=== PATIENT | female | born 1965 | race Caucasian/White ===

== ENCOUNTER → 2019-03-19 | Outpatient (CLI) | payer BC ==
--- NOTE | 2019-03-19 09:11 | CT ---
EXAMINATION TYPE: CT sinus wo con DATE OF EXAM: 03/19/2019 COMPARISON: NONE HISTORY: chronic drainage cough CT DLP: 597 mGycm. Automated Exposure Control for Dose Reduction was Utilized. TECHNIQUE: CT scan of the sinuses is performed without contrast, axial images are obtained, coronal r eformatted images are also reviewed. FINDINGS: The paranasal sinuses and mastoid air cells are well aerated. Scant mucosal thickening is seen within the left ostiomeatal plaque although the ostia medial complexes appear patent. There is mild leftwar d nasal septal deviation. There is a 3 mm nasal septal spur. No Alonso cells or liliam bullosa are ap preciated. The globes are symmetric and unremarkable. Extraocular muscles are also unremarkable. Temporal mandib ular joints are symmetric. The brain demonstrate no acute abnormality but are suboptimally evaluated given [id number]. IMPRESSION: 1. Paranasal sinuses are currently well aerated. No acute sinusitis at this time. 2. 3 mm leftward nasal septal spur and mild leftward nasal septal deviation. 3. Scant mucosal thickening within the left ostiomeatal complex. Bilateral ostiomeatal complexes are patent however.
[2019-03-19 09:23] LABS: T4, Free (Free Thyroxine) 0.93 ng/dL (0.78-2.19)
--- NOTE | 2019-03-19 09:45 | US ---
EXAMINATION TYPE: US thyroid st tissue head/neck DATE OF EXAM: 03/19/2019 COMPARISON: Thyroid ultrasound March 13, 2009 CLINICAL HISTORY: J32.9 Chronic sinusitis E04.1 Thyroid nodule. GLAND SIZE: Right Lobe: 4.4 X 1.5 X 0.9 cm Overall Parenchyma: homogenous Left Lobe: 4.5 X 1.6 X 0.9 cm Overall Parenchyma: homogeneous Isthmus Thickness: 0.3 cm NODULES RIGHT: # of nodules measured on right: 0 LEFT: # of nodules measured on left: 1 1. 0.8 X 0.8cm calcified nodule at the lower pole with well-defined margins. This nodule is wider t wayne tall and shows no intranodular vascularity. Prior size: AIRFREIGHT OPERATIONS AGENT ISTHMUS: # of nodules measured in the isthmus: 0 Bilateral neck scanned, no evidence of lymphadenopathy. Previously visualized large solid cystic left thyroid nodule not clearly seen on today's study. Suspe ct product of interval aspiration. IMPRESSION: Normal-sized thyroid without suspicious greater than 1 cm nodule on current study.
--- NOTE | 2019-03-19 09:52 | XR ---
EXAMINATION TYPE: XR chest 2V DATE OF EXAM: 03/19/2019 COMPARISON: NONE HISTORY: Chronic sinusitis and cough TECHNIQUE: Frontal and lateral views of the chest are obtained. FINDINGS: There is no focal air space opacity, pleural effusion, or pneumothorax seen. The cardiac silhouette size is within normal limits. The osseous structures are intact. Mild multilevel degener ative changes of the spine. IMPRESSION: No acute cardiopulmonary process.
== END | disposition home or self-care (01) ==
LOC: RADCTMAIN 08:07
PROVIDERS: ATTEND Otolaryngology
DX: J34.2 Deviated nasal septum (principal); E04.1 Nontoxic single thyroid nodule; R05 Cough
CPT/HCPCS: 70486; 71046; 76536; 84439; 84443

== ENCOUNTER → 2019-04-26 | Outpatient (CLI) | payer BC ==
--- NOTE | 2019-04-26 16:19 | CT ---
EXAMINATION TYPE: CT abdomen pelvis w con DATE OF EXAM: 04/26/2019 COMPARISON: None INDICATION: Lower abdominal and bladder pain. DLP: 1676.6 mGycm, Automated exposure control for dose reduction was used. CONTRAST: 100ml mL of Isovue 300. Study performed with Oral Contrast TECHNIQUE: Axial images were obtained from above the diaphragm to the pubic rami in the axial plane a t 5 mm thick sections. Reconstructed images are reviewed on the computer in the coronal plane. FINDINGS: Limited CT sections are obtained the lung bases. The lung bases are clear. CT ABDOMEN: Liver: Normal Spleen: Normal Pancreas: Normal Adrenal glands: The adrenal glands are normal. Gallbladder: Normal Kidneys: No masses are evident. No hydronephrosis is present. No cysts are present. Delayed images were obtained through the kidneys, which remain unremarkable. Aorta: Vascular calcification is within the aorta. Inferior vena cava: Normal. CT PELVIS: Multiple diverticuli are through the sigmoid colon. Adjacent to the mid sigmoid colon ther e are some inflammatory changes near to the uterus and urinary bladder likely related to some acute d iverticulitis. There are loops of bowel which are incompletely distended or lack oral contrast limiting their evalua tion. Appendix: Normal as visualized. Urinary bladder: Normal. Genitourinary structures: Uterus appears normal. Adnexal regions are clear. Osseous structures: No suspicious lytic or sclerotic lesions. Sacroiliac joint degenerative changes a re noted. IMPRESSIONS: 1. Acute diverticulitis adjacent to the mid sigmoid colon
== END | disposition home or self-care (01) ==
LOC: RADCTMAIN 13:43
PROVIDERS: ATTEND Internal Medicine
DX: K57.32 Diverticulitis of large intestine without perforation or abscess without bleeding (principal)
CPT/HCPCS: 74177; Q9967

== ENCOUNTER → 2019-05-14 | Outpatient (CLI) | payer BC ==
--- NOTE | 2019-05-23 10:50 | MM ---
Reason for exam: screening (asymptomatic). Last mammogram was performed 4 years and 8 months ago. History: Patient is postmenopausal and history of other cancer. Physical Findings: A clinical breast exam by your physician is recommended on an annual basis and results should be correlated with mammographic findings. MG 3D Screening Mammo W/Cad Bilateral CC and MLO view(s) were taken. Prior study comparison: September 26, 2014, mammogram, performed at [place]. There are scattered fibroglandular densities. There is chronic nodularity in the left breast. There is no discrete abnormality. ASSESSMENT: Negative, BI-RAD 1 RECOMMENDATION: Routine screening mammogram of both breasts in 1 year.
== END | disposition home or self-care (01) ==
LOC: RADMAMWWP 08:13
PROVIDERS: ATTEND Obstetrics & Gynecology
DX: Z12.31 Encounter for screening mammogram for malignant neoplasm of breast (principal); N95.9 Unspecified menopausal and perimenopausal disorder
CPT/HCPCS: 77063; 77067; 83001

== ENCOUNTER → 2020-04-01 | Outpatient (CLI) | payer BC ==
--- NOTE | 2020-04-01 18:41 | US ---
EXAMINATION TYPE: US thyroid st tissue head/neck DATE OF EXAM: 04/01/2020 COMPARISON: NONE CLINICAL HISTORY: E04.1 Thyroid nodule. Thyroid nodule, history of thyroid FNA GLAND SIZE: Right Lobe: 4.7 x 1.4 x 1.9 cm Overall Parenchyma: heterogenous Left Lobe: 4.0 x 1.3 x 1.1 cm Overall Parenchyma: heterogeneous Isthmus Thickness: 0.3 cm NODULES RIGHT: # of nodules measured on right: 0 LEFT: # of nodules measured on left: 1 1. 0.7 X 0.3 x 0.7 cm echogenic calcified nodule at the lower pole with poorly defined margins. Thi s nodule is wider than tall and shows no intranodular vascularity. Prior size: 0.8 x 0.8 cm ISTHMUS: # of nodules measured in the isthmus: 0 Bilateral neck scanned, no evidence of lymphadenopathy. IMPRESSION: Essentially stable calcified focus within the left lobe of the thyroid and subcentimeter in size
== END | disposition home or self-care (01) ==
LOC: RADUSWWP 16:33
PROVIDERS: ATTEND Otolaryngology
DX: E04.1 Nontoxic single thyroid nodule (principal)
CPT/HCPCS: 76536

== ENCOUNTER 2023-04-27 11:37 | Emergency (ER) | payer BC, OTHER ==
--- NOTE | 2023-04-27 11:55 | ED ---
General Adult HPI <Katina Leon - Last Filed: 04/27/23 11:54> - General Source: patient, RN notes reviewed, old records reviewed <Fausto Herrera - Last Filed: 04/27/23 15:00> - General Stated complaint: high bp Time Seen by Provider: 04/27/23 11:55 - History of Present Illness Initial comments: Patient is a 58-year-old female is otherwise healthy presents emergency room with complaints of elevated blood pressure and just not feeling quite like herself. She states that over the last couple weeks she has not felt like herself and has been monitoring her blood pressure. She states that it has been more elevated over the last 2 days and when she took her blood pressure at the pharmacy today it was 180/108. Patient states that she gets palpitations when she lays down at night. (Katina Leon) This is a 58-year-old female presents emergency Department because her blood pressure has been elevated. Patient states she went to urgent care and it was normal but they gave her a prescription for her blood pressure and she went to get it filled and at the pharmacy and was again elevated. Patient denies headache patient denies any numbness weakness. Patient denies any chest pain difficulty breathing or shortness of breath. Patient states she's been having elevated blood pressures at home when she's been taking it lately but she has never been treated for high blood pressure. Patient denies any fever chills or cough per patient denies any symptoms except for the fact her blood pressures. (Fausto Herrera) - Related Data Home Medications Medication Instructions Recorded Confirmed No Known Home Medications 04/27/23 04/27/23 Allergies Allergy/AdvReac Type Severity Reaction Status Date / Time bee venom protein (honey bee) Allergy Anaphylaxis Verified 04/27/23 13:26 Review of Systems ROS Other: All systems not noted in ROS Statement are negative. <Katina Leon - Last Filed: 04/27/23 11:54> ROS Other: All systems not noted in ROS Statement are negative. <Fausto Herrera - Last Filed: 04/27/23 15:00> ROS Statement: Those systems with pertinent positive or pertinent negative responses have been documented in the HPI. General Exam <Katina Leon - Last Filed: 04/27/23 11:54> <Fausto Herrera - Last Filed: 04/27/23 15:00> - General Exam Comments Initial Comments: Visual Physical Exam Vital signs reviewed General: Well-appearing, nontoxic, no acute distress. Head: Normocephalic, atraumatic Eyes: PERRLA, EOMI ENT: Airway patent Chest: Nonlabored breathing Skin: No visual rash, normal skin tone Neuro: Alert and oriented 3 Musculoskeletal: No gross abnormalities (Katina Leon) GENERAL: Patient is well-developed and well-nourished. Patient is nontoxic and well-hydr ated and is in no acute distress. ENT: Neck is soft and supple. No significant lymphadenopathy is noted. Oropharynx is clear. Moist mucous membranes. Neck has full range of motion without eliciting any pain. EYES: The sclera were anicteric and conjunctiva were pink and moist. Extraocular mo vements were intact and pupils were equal round and reactive to light. Eyelids were unremarkable. PULMONARY: Unlabored respirations. Good breath sounds bilaterally. No audible rales rhonchi or wheezing was noted. CARDIOVASCULAR: There is a regular rate and rhythm without any murmurs gallops or rubs. ABDOMEN: Soft and nontender with normal bowel sounds. SKIN: Skin is clear with no lesions or rashes and otherwise unremarkable. NEUROLOGIC: Patient is alert and oriented x3. Cranial nerves II through XII are grossly intact. Motor and sensory are also intact. Normal speech, volume and content. Symmetrical smile. MUSCULOSKELETAL: Normal extremities with adequate strength and full range of motion. No lower extremity swelling or edema. No calf tenderness. LYMPHATICS: No significant lymphadenopathy is noted PSYCHIATRIC: Normal psychiatric evaluation. (Fausto Herrera) Course Vital Signs 04/27/23 04/27/23 04/27/23 11:51 13:23 13:51 Temperature 98.0 F Pulse Rate 75 82 Respiratory 18 Rate Blood Pressure 198/112 172/94 172/94 O2 Sat by Pulse 98 Oximetry 04/27/23 04/27/23 04/27/23 13:52 14:07 14:52 Temperature Pulse Rate Respiratory Rate Blood Pressure 135/85 126/80 137/86 O2 Sat by Pulse Oximetry Medical Decision Making <Katina Leon - Last Filed: 04/27/23 11:54> - Lab Data Result diagrams: 04/27/23 12:07 04/27/23 12:07 <Fausto Herrera - Last Filed: 04/27/23 15:00> - Medical Decision Making Quick note portion completed by myself, electronically signed HAM Skaggs. (Katina Leon) EKG is reviewed by myself. EKG shows sinus rhythm at 83 bpm VT interval 252 QRS is 88 QT interval 390 QTC is 420. Patient's EKG shows no ST segment elevation or depression. Was pt. sent in by a medical professional or institution (, [facility], TIER LIFT OPERATOR, urgent care, hospital, or [facility]...) When possible be specific @ -Patient was sent in by the urgent care Did you speak to anyone other than the patient for history (EMS, parent, family, police, friend...)? What history was obtained from this source @ -No Did you review nursing and triage notes (agree or disagree)? Why? @ -I reviewed and agree with nursing and triage notes Were old charts reviewed (outside hosp., previous admission, EMS record, old EKG, old radiological studies, urgent care reports/EKG's, [facility] records)? Report findings @ -I reviewed prior charts and lab work on this patient Differential Diagnosis (chest pain, altered mental status, abdominal pain women, abdominal pain men, vaginal bleeding, weakness, fever, dyspnea, syncope, headache, dizziness, GI bleed, back pain, seizure, CVA, palpatations, mental health, musculoskeletal)? @ -not applicable EKG interpreted by me (3pts min.). @ -As above X-rays interpreted by me (1pt min.). @ -None done CT interpreted by me (1pt min.). @ -None done U/S interpreted by me (1pt. min.). @ -None done What testing was considered but not performed or refused? (CT, X-rays, U/S, labs )? Why? @ -None What meds were considered but not given or refused? Why? @ -None Did you discuss the management of the patient with other professionals (professionals i.e. [facility] Wagner, TIER LIFT OPERATOR, lab, RT, psych nurse, health care social worker, organizational consultant, teacher, chief environmental commitment officer, nurse outreach case manager)? Give summary @ -No Was smoking cessation discussed for >3mins.? @ -No Was critical care preformed (if so, how long)? @ -No Were there social determinants of health that impacted care today? How? (Homelessness, low income, unemployed, alcoholism, drug addiction, transportation, low edu. Level, literacy, decrease access to med. care, [place] [facility], rehab)? @ -No Was there de-escalation of care discussed even if they declined (Discuss DNR or withdrawal of care, Hospice)? DNR status @ -No What co-morbidities impacted this encounter? (DM, HTN, Smoking, COPD, CAD, Cancer, CVA, ARF, Chemo, Hep., AIDS, mental health diagnosis, sleep apnea, morbid obesity)? @ -None Was patient admitted / discharged? Hospital course, mention meds given and route, prescriptions, significant lab abnormalities, going to OR and other pertinent info. @ -Patient was asymptomatic throughout her ED course. Patient's blood pressure after his initial presentation was within normal range and the monitor for over an hour she was asymptomatic and remained in normal range she she will follow-up with her primary medical care doctor. Patient will also filled the prescription at the primary medical care doctor gave her for blood pressure and will document her daily blood pressures 4 times a day the same time every day. Undiagnosed new problem with uncertain prognosis? @ -No Drug Therapy requiring intensive monitoring for toxicity (Heparin, Nitro, Insulin, Cardizem)? @ -No Were any procedures done? @ -No Diagnosis/symptom? @ -Hypertensive urgency Acute, or Chronic, or Acute on Chronic? @ -Acute Uncomplicated (without systemic symptoms) or Complicated (systemic symptoms)? @ -Complicated Side effects of treatment? @ -No Exacerbation, Progression, or Severe Exacerbation? @ -No Poses a threat to life or bodily function? How? (Chest pain, [place], [place], pneumonia, PE, COPD, DKA, ARF, appy, cholecystitis, CVA, Diverticulitis, Homicidal, Suicidal, threat to staff... and all critical care pts) @ -No (Fausto Herrera) - Lab Data Lab Results 04/27/23 04/27/23 04/27/23 Range/Units 12:07 12:07 12:07 WBC 6.8 (3.8-10.6) k/uL RBC 4.73 (3.80-5.40) m/uL Hgb 14.4 (11.4-16.0) gm/dL Hct 43.1 (34.0-46.0) % MCV 91.1 (80.0-100.0) fL MCH 30.3 (25.0-35.0) pg MCHC 33.3 (31.0-37.0) g/dL RDW 13.0 (11.5-15.5) % Plt Count 336 (150-450) k/uL MPV 6.8 Neutrophils % 62 % Lymphocytes % 26 % Monocytes % 6 % Eosinophils % 2 % Basophils % 1 % Neutrophils # 4.2 (1.3-7.7) k/uL Lymphocytes # 1.8 (1.0-4.8) k/uL Monocytes # 0.4 (0-1.0) k/uL Eosinophils # 0.2 (0-0.7) k/uL Basophils # 0.1 (0-0.2) k/uL Sodium 140 (137-145) mmol/L Potassium 4.3 (3.5-5.1) mmol/L Chloride 102 (98-107) mmol/L Carbon Dioxide 27 (22-30) mmol/L Anion Gap 11 mmol/L BUN 15 (7-17) mg/dL Creatinine 0.70 (0.52-1.04) mg/dL Est GFR (CKD-EPI)AfAm >90 (>60 ml/min/1.73 sqM) Est GFR (CKD-EPI)NonAf >90 (>60 ml/min/1.73 sqM) Glucose 103 H (74-99) mg/dL Calcium 9.3 (8.4-10.2) mg/dL Total Bilirubin 0.4 (0.2-1.3) mg/dL AST 26 (14-36) U/L ALT 36 H (4-34) U/L Alkaline Phosphatase 108 (38-126) U/L Troponin I <0.012 (0.000-0.034) ng/mL Total Protein 7.4 (6.3-8.2) g/dL Albumin 4.5 (3.5-5.0) g/dL TSH 1.690 (0.465-4.680) mIU/L Disposition <Katina Leon - Last Filed: 04/27/23 11:54> Is patient prescribed a controlled substance at d/c from ED?: No Time of Disposition: 15:00 <HerreraFausto - Last Filed: 04/27/23 15:00> Clinical Impression: Hypertensive urgency Disposition: HOME SELF-CARE Condition: Good Instructions (If sedation given, give patient instructions): Hypertension (ED) Additional Instructions: Patient should monitor her blood pressure 4 times a day and charted appr opriately in follow-up with her primary medical care doctor. Patient's return to the emergency department if she has any chest pain difficulty breathing or headache. Referrals: Kendell Mercado MD [Primary Care Provider] - 1-2 days
[2023-04-27 12:21] LABS: Basophils # (A) 0.1 k/uL (0-0.2); Basophils % (A) 1 %; Eosinophils # (A) 0.2 k/uL (0-0.7); Eosinophils % (A) 2 %; HCT 43.1 % (34.0-46.0); HGB 14.4 gm/dL (11.4-16.0); Lymphocytes # (A) 1.8 k/uL (1.0-4.8); Lymphocytes % (A) 26 %; MCH 30.3 pg (25.0-35.0); MCHC 33.3 g/dL (31.0-37.0); MCV 91.1 fL (80.0-100.0); Mean Platelet Volume 6.8; Monocytes # (A) 0.4 k/uL (0-1.0); Monocytes % (A) 6 %; Neutrophils # (A) 4.2 k/uL (1.3-7.7); Neutrophils % (A) 62 %; Platelet Count 336 k/uL (150-450); RBC 4.73 m/uL (3.80-5.40); WBC 6.8 k/uL (3.8-10.6)
--- NOTE | 2023-04-27 12:58 | XR ---
EXAMINATION TYPE: XR chest 2V DATE OF EXAM: 04/27/2023 12:55 PM CLINICAL INDICATION:Female, 58 years old with history of elevated blood pressure, palpitations; [facility] COMPARISON: Chest radiographs from 03/19/2019 TECHNIQUE: XR chest 2V Frontal and lateral views of the chest. FINDINGS: Lungs/Pleura: There is no evidence of pleural effusion, focal consolidation, or pneumothorax. Pulmonary vascularity: Unremarkable. Heart/mediastinum: Cardiomediastinal silhouette is unremarkable. Musculoskeletal: No acute osseous pathology. IMPRESSION: No acute cardiopulmonary disease/process.
[2023-04-27 13:05] LABS: ALT 36 U/L (4-34); AST 26 U/L (14-36); African American GFR (CKD) >90 (>60 ml/min/1.73 sqM); Albumin 4.5 g/dL (3.5-5.0); Alkaline Phosphatase 108 U/L (38-126); Anion Gap 11 mmol/L; Blood Urea Nitrogen 15 mg/dL (7-17); Calcium 9.3 mg/dL (8.4-10.2); Carbon Dioxide 27 mmol/L (22-30); Chloride 102 mmol/L (98-107); Glucose 103 mg/dL (74-99); Non-African American GFR(CKD) >90 (>60 ml/min/1.73 sqM); Potassium 4.3 mmol/L (3.5-5.1); Sodium 140 mmol/L (137-145); Total Bilirubin 0.4 mg/dL (0.2-1.3); Total Protein 7.4 g/dL (6.3-8.2)
[2023-04-27] MEDS ORDERED: hydrALAZINE HCL 20 MG/ML 1 ML VIAL IVP STA (13:16)
[2023-04-27 15:36] VITALS: BP 127/83; PULSE 80; RESP 16; TEMP 97.4
== END 2023-04-27 15:20 | disposition home or self-care (01) ==
LOC: EC 11:37
DX: I16.0 Hypertensive urgency (principal); Z91.030 Bee allergy status
CPT/HCPCS: 36415; 71046; 80053; 84443; 84484; 85025; 93005; 99284

== ENCOUNTER → 2023-11-13 | Outpatient (CLI) | payer OTHER ==
[2023-11-13 10:25] LABS: Basophils # (A) 0.05 X 10*3/uL (0.00-0.10); Basophils % (A) 0.8 %; Eosinophils # (A) 0.12 X 10*3/uL (0.04-0.35); Eosinophils % (A) 1.8 %; HCT 42.5 % (37.2-46.3); HGB 13.8 g/dL (12.0-15.0); Lymphocytes % (A) 22.5 %; MCH 30.5 pg (27.0-32.0); MCHC 32.5 g/dL (32.0-37.0); Mean Platelet Volume 9.2 FL (9.5-12.2); Monocytes # (A) 0.67 X 10*3/uL (0.20-1.00); Monocytes % (A) 10.1 %; NRBC Per 100 WBC 0 X 10*3/uL (0.00-0.01); Neutrophils % (A) 64.5 %; Platelet Count 382 X 10*3/uL (140-440); RBC 4.52 X 10*6/uL (4.10-5.20); RDW 13.9 % (11.5-14.5); WBC 6.66 X 10*3/uL (4.50-10.00)
[2023-11-13 10:43] LABS: Homocysteine 7.22 UMOL/L (4.00-14.00); Thyroid Peroxidase Antibodies <9.0 U/mL (0.0-33.0)
[2023-11-13 10:53] LABS: Phosphorus 4.4 mg/dL (2.4-5.1)
[2023-11-13 10:54] LABS: ALT 25 U/L (8-44); AST 17 U/L (13-35); Albumin 4.4 g/dL (3.8-4.9); Albumin/Globulin Ratio 1.91 Ratio (1.60-3.17); Alkaline Phosphatase 116 U/L (41-126); Bilirubin, Conjugated <0.20 mg/dL (0.20-0.40); Blood Urea Nitrogen 21.2 mg/dL (9.0-27.0); Calcium 9.8 mg/dL (8.7-10.3); Carbon Dioxide 24.5 mmol/L (21.6-31.8); Chloride 103 mmol/L (96-109); Globulin 2.3 g/dL (1.6-3.3); Glucose 136 mg/dL (70-110); Potassium 4.7 mmol/L (3.5-5.5); Sodium 140 mmol/L (135-145); Total Bilirubin <0.2 mg/dL (0.3-1.2); Total Protein 6.7 g/dL (6.2-8.2)
== END | disposition home or self-care (01) ==
LOC: LABWHC1 07:00
DX: F33.1 Major depressive disorder, recurrent, moderate (principal); Z79.899 Other long term (current) drug therapy
CPT/HCPCS: 36415; 80053; 80069; 82248; 82306; 82607; 82746; 83036; 83090; 84436; 84443; 84481; 85025; 86376